=== PATIENT | female | born 1960 | race Caucasian/White ===

== ENCOUNTER 2021-01-09 20:49 | Emergency (ER) | payer OTHER ==
[~2021-01-09 20:49] MED LIST: ABILIFY30 MG PO; FOLIC ACID1 MG PO; IMODIUM2 MG PO; LISINOPRIL-HCT1 EAC1 PO; PANTOPRAZOLE SO40 MG PO; PREDNISONE 20MG20 MG PO; TAMIFLU 75MG CA75 MG PO; VENLAFAXINE HC150 MG PO; VENTOLIN HFA IN18 GM INH; VIBRAMYCIN100 MG PO; VITAMIN D400 UNIT PO
[2021-01-09 21:36] LABS: BASOPHIL 0 % (0-2); EOSINOPHIL 1.1 % (0-5); HCT 38.4 % (37.0-47.0); HGB 12.6 g/dl (12.5-16.0); LYMPHOCYTE 37.9 % (15-48); MCH 29.6 pg (25.0-31.0); MCHC 32.8 g/dL (32.0-36.0); MCV 90.1 fL (78.0-100.0); MONOCYTE 7.1 % (0-12); NEUTROPHIL 53.9 % (41-80); NRBC 0; PLT 264 K/uL (150-400); RBC 4.26 M/uL (4.20-5.40); RDW 15.9 % (11.5-14.0); WBC 4.5 K/uL (4.0-10.5)
[2021-01-09 21:40] LABS: ALBUMIN 3.2 g/dL (3.4-5.0); BILIRUBIN - TOTAL 0.7 mg/dL (0.2-1.0); CREATININE 0.62 mg/dL (0.51-0.95); GLOBULIN (CALCULATION) 4.1 g/dL; POTASSIUM 3.1 mmol/L (3.5-5.1); TOTAL PROTEIN 7.3 g/dL (6.4-8.2)
[2021-01-09] MEDS ORDERED: ONDANSETRON ODT4 MG PO (22:38)
[2021-05-31] MEDS ORDERED: VIT B 12 SL (14:50)
[2021-05-31] MEDS ORDERED: ALPRAZOLAM0.25 MG PO (14:51)
[2021-05-31] MEDS ORDERED: SEROQUEL 25MG T25 MG PO (14:52)
[2021-05-31] MEDS ORDERED: AMLODIPINE BESY10 MG PO (14:53)
[2021-05-31] MEDS ORDERED: PRINIVIL20 MG PO (14:54)
[2021-06-05] MEDS ORDERED: PERCOCET 5-3251 EACH PO (10:53)
== END 2021-01-09 22:48 | disposition home or self-care (01) ==
LOC: FER 20:49
PROVIDERS: Emergency Medicine
DX: B34.9 Viral infection, unspecified (principal); R07.89 Other chest pain; I10 Essential (primary) hypertension; J44.9 Chronic obstructive pulmonary disease, unspecified; Z90.49 Acquired absence of other specified parts of digestive tract; Z88.6 Allergy status to analgesic agent; Z87.19 Personal history of other diseases of the digestive system
CPT/HCPCS: 36415; 71045; 80053; 82150; 83690; 84484; 85025; 93005; J1885; J2405; J7030

== ENCOUNTER → 2021-06-05 | Day surgery (SDC) | payer MEDICARE, OTHER ==
[~2021-06-05] VITALS: Ht 170.2 cm; Wt 118.1 kg
[~2021-06-05] MED LIST changes: +ALPRAZOLAM0.25 MG PO; +AMLODIPINE BESY10 MG PO; +ONDANSETRON ODT4 MG PO; +PERCOCET 5-3251 EACH PO; +PRINIVIL20 MG PO; +SEROQUEL 25MG T25 MG PO; +VIT B 12 SL
[2021-06-05 12:47] LABS: HCT 37.9 % (37.0-47.0); HGB 11.8 g/dl (12.5-16.0); MCH 29.4 pg (25.0-31.0); MCHC 31.1 g/dL (32.0-36.0); MCV 94.5 fL (78.0-100.0); MPV 10.6 fL (6.0-9.5); RBC 4.01 M/uL (4.20-5.40); RDW 14.8 % (11.5-14.0); WBC 5.9 K/uL (4.0-10.5)
[2021-06-05 13:03] LABS: ALBUMIN 3.5 g/dL (3.4-5.0); BILIRUBIN - TOTAL 0.5 mg/dL (0.2-1.0); BUN/CREAT RATIO (CALC) 15.1 RATIO; CREATININE 0.73 mg/dL (0.51-0.95); GLOBULIN (CALCULATION) 3.7 g/dL; POTASSIUM 3.8 mmol/L (3.5-5.1); TOTAL PROTEIN 7.2 g/dL (6.4-8.2)
== END | disposition home or self-care (01) ==
LOC: FAS 05-08 07:00
PROVIDERS: Orthopaedic Surgery
DX: S83.272A Complex tear of lateral meniscus, current injury, left knee, initial encounter (principal); M17.12 Unilateral primary osteoarthritis, left knee; M25.862 Other specified joint disorders, left knee; I10 Essential (primary) hypertension; J45.909 Unspecified asthma, uncomplicated; K21.9 Gastro-esophageal reflux disease without esophagitis; E66.01 Morbid (severe) obesity due to excess calories; Z86.73 Personal history of transient ischemic attack (TIA), and cerebral infarction without residual deficits; Z88.6 Allergy status to analgesic agent; Z79.899 Other long term (current) drug therapy; X58.XXXA Exposure to other specified factors, initial encounter
CPT/HCPCS: 36415; 71045; 80053; 93005; J2250; J2704; J3010; J7120